=== PATIENT | male | born 1955 | race Caucasian/White ===

== ENCOUNTER 2021-02-12 14:38 | Inpatient (IN) | payer MEDICARE, OTHER ==
[~2021-02-12] VITALS: Ht 180.3 cm; Wt 62.5 kg
[2021-02-12 15:16] LABS: BASOPHILS % (AUTO) 1 % (0-1); EOSINOPHILS % (AUTO) 4 % (1-7); LYMPHOCYTES % (AUTO) 18 % (22-44); MEAN CORPUSCULAR HEMOGLOBIN 30.6 pg (27.5-34.5); MEAN CORPUSCULAR HGB CONC 33.4 g/dL (33.2-36.2); MEAN PLATELET VOLUME 7.4 fL (7.4-10.4); MONOCYTES % (AUTO) 7 % (2-9); NEUTROPHILS % (AUTO) 70 % (42-75); PLATELET COUNT 330 x10^3/uL (130-400); RED BLOOD COUNT 4.89 x10^6/uL (4.38-5.82); RED CELL DISTRIBUTION WIDTH 14.1 % (9.4-14.8)
[2021-02-12 15:27] LABS: ALANINE AMINOTRANSFERASE 34 U/L (12-78); ALBUMIN 3.4 g/dL (3.4-5.0); ANION GAP 7 mmol/L (5-15); CALCIUM 9.1 mg/dL (8.5-10.1); CHLORIDE 108 mmol/L (98-107); CREATININE 1.04 mg/dL (0.7-1.3)
[2021-02-12 15:31] LABS: ALKALINE PHOSPHATASE 154 U/L (45-117); BILIRUBIN,TOTAL 0.4 mg/dL (0.2-1.0); TOTAL PROTEIN 6.8 g/dL (6.4-8.2); TROPONIN I < 0.015 ng/mL (0.000-0.045)
--- NOTE | 2021-02-12 15:53 | NUR ---
pt presents to ED with c/o intermittent chest pain that's been "there for a while" but worse yesterday. notes this is sternal at 6/10, sharp in nature. pain does not radiate, no aggravating or allieviating factors. pt had an aortogram and angiogram yesterday by MD Elliott to assess pt's PAD, pt mentioned to MD Elliott his chest pain and she recommended he go to ED for workup. pt also notes that he has numbness/tingling to hands and feet bilaterally, this is chronic in nature but worse since yesterday after angiogram. pt a&o, resps even and unlabored, neuro intact. all monitors in place. sinus hayley rate 50s on threat monitoring analyst with no ectopy. all extremities warm and pink with equal strength. edmd plunkett at bedside.
[2021-02-12] MEDS ORDERED: VITAMIN E PO (16:49)
[2021-02-12] MEDS ORDERED: CLOP75TA52 PO (16:49)
[2021-02-12] MEDS ORDERED: GABA300C PO (16:49)
[2021-02-12] MEDS ORDERED: VITA1TAB19 PO (16:49)
[2021-02-12] MEDS ORDERED: CALCIUM PO (16:49)
[2021-02-12] MEDS ORDERED: ASPI-963 PO (16:49)
[2021-02-12] MEDS ORDERED: MULT-658 PO (16:49)
--- NOTE | 2021-02-12 16:50 | NUR ---
MD LANE AT BEDSIDE FOR ADMIT ASSESSMENT. PIV PLACED. ALL MONITORS IN PLACE. PT A&O, RESPS EVEN AND UNLABORED, NADN.
[2021-02-12] MEDS ORDERED: DIPHENHYDRAMINE 25 MG CAPSULE PO PRN (17:00)
[2021-02-12] MEDS ORDERED: ACETAMINOPHEN 325 MG TABLET PO PRN ×2 (17:00→17:30)
[2021-02-12] MEDS ORDERED: ONDANSETRON ODT 4 MG PO PRN ×2 (17:00→17:30)
[2021-02-12] MEDS ORDERED: ONDANSETRON 2MG/ML, 2ML IVPush PRN ×2 (17:00→17:30)
[2021-02-12] MEDS ORDERED: ENALAPRILAT 1.25 MG/ML, 2ML IVPush PRN ×2 (17:00→17:30)
[2021-02-12 17:10] LABS: TROPONIN I < 0.015 ng/mL (0.000-0.045)
[2021-02-12] MEDS ORDERED: hydrALAzine 20 MG/ML, 1ML IVPush PRN (17:30)
[2021-02-12] MEDS ORDERED: BISACODYL 10 MG SUPP PR PRN (17:30)
[2021-02-12] MEDS ORDERED: MELATONIN 5 MG TABLET PO PRN (17:30)
[2021-02-12] MEDS ORDERED: POLYETHYLENE GLYCOL 17 GM PACKET PO PRN (17:30)
[2021-02-12] MEDS ORDERED: HYDROcodone/APAP 5/325 TABLET PO PRN (17:30)
[2021-02-12] MEDS ORDERED: DOCUSATE 100 MG CAPSULE PO PRN (17:30)
--- NOTE | 2021-02-12 17:30 | NUR ---
shaneka parks at bedside for admit. pulses assessed by doppler by shaneka parks, shaneka not able to find left dorsalis pedis, right auscultated doppler monophasic. bilateral radial +1 bilaterally. shaneka states she will be consulting pts vascular surgeon to address.
--- NOTE | 2021-02-12 18:05 | NUR ---
report given to CHANCE Mayfield who is receiving, [facility]
[2021-02-12] MEDS ORDERED: GABAPENTIN 300 MG CAPSULE ONE (18:14)
[2021-02-12 18:23] VITALS: BP 124/68
[2021-02-12] MEDS: ENOXAPARIN 40 MG/0.4 ML SQ SCH (20:18)
[2021-02-12] MEDS: GABAPENTIN 300 MG CAPSULE PO SCH ×2 (20:18→21:00)
[2021-02-12 23:46] LABS: TROPONIN I < 0.015 ng/mL (0.000-0.045)
[2021-02-13 01:13] VITALS: BP 155/77
[2021-02-13 05:26] LABS: BASOPHILS % (AUTO) 1 % (0-1); EOSINOPHILS % (AUTO) 5 % (1-7); LYMPHOCYTES % (AUTO) 19 % (22-44); MEAN CORPUSCULAR HGB CONC 33.7 g/dL (33.2-36.2); MEAN PLATELET VOLUME 7.8 fL (7.4-10.4); MONOCYTES % (AUTO) 8 % (2-9); NEUTROPHILS % (AUTO) 67 % (42-75); PLATELET COUNT 297 x10^3/uL (130-400); RED BLOOD COUNT 4.78 x10^6/uL (4.38-5.82)
[2021-02-13 05:32] LABS: ANION GAP 5 mmol/L (5-15); CALCIUM 9.2 mg/dL (8.5-10.1); CHLORIDE 109 mmol/L (98-107)
[2021-02-13 05:37] LABS: CHOL/HDL RATIO 2.6; CHOLESTEROL, TOTAL 129 mg/dL (140-239); CREATININE 0.85 mg/dL (0.7-1.3); HDL CHOL % 38 % (26-37); HDL CHOLESTEROL (DIRECT) 49 mg/dL (40-60); LDL CHOLESTEROL,CALCULATED 62 mg/dL (54-169); LDL/HDL RATIO 1.3 (0.5-3.0); TRIGLYCERIDES 91 mg/dL (50-200); VLDL CHOLESTEROL 18 mg/dL (0-25)
[2021-02-13 07:50] VITALS: BP 133/75
[2021-02-13] MEDS ORDERED: REGADENOSON 0.4 MG/5 ML SYRINGE ONE (08:26)
[2021-02-13] MEDS: TAMSULOSIN 0.4 MG CAP.ER.24H PO SCH (09:33)
[2021-02-13] MEDS: ASPIRIN 81 MG TABLET EC PO SCH (09:33)
[2021-02-13] MEDS: MULTIVITS,STRESS FORMULA 1 TABLET PO SCH (09:33)
[2021-02-13] MEDS: MULTIVITAMIN 1 TABLET PO SCH (09:33)
[2021-02-13] MEDS: CLOPIDOGREL 75 MG TABLET PO SCH (09:33)
[2021-02-13] MEDS: GABAPENTIN 300 MG CAPSULE PO SCH ×3 (09:34→20:54)
[2021-02-13 12:54] VITALS: BP 144/78
[2021-02-13 13:13] LABS: INTERNATIONAL NORMALIZED RATIO 1.04 (0.93-1.1); PROTHROMBIN TIME 11.1 Seconds (9.6-11.5)
[2021-02-13] MEDS: ENOXAPARIN 40 MG/0.4 ML SQ SCH (18:02)
[2021-02-13 20:26] VITALS: BP 113/52
[2021-02-13] MEDS: ATORVASTATIN 80 MG TABLET PO SCH (20:54)
[2021-02-14 02:20] VITALS: BP 141/78
[2021-02-14 07:30] LABS: AMPHETAMINE SCREEN, URINE Positive (Negative); BARBITURATE SCREEN, URINE Negative (Negative); BENZODIAZEPINE SCREEN, URINE Negative (Negative); CANNABINOID SCREEN, URINE Positive (Negative); COCAINE SCREEN, URINE Negative (Negative); METHADONE SCREEN, URINE Negative (Negative); OPIATE SCREEN, URINE Negative (Negative)
[2021-02-14] MEDS ORDERED: FENTANYL PF 250 MCG/5ML ONE (07:33)
[2021-02-14] MEDS ORDERED: MIDAZOLAM 1 MG/ML, 2ML ONE ×2 (07:33→11:08)
[2021-02-14] MEDS ORDERED: THROMBIN 20,000 UNIT VIAL TP ONE (07:38)
[2021-02-14] MEDS ORDERED: PROTAMINE SULFATE 10 MG/ML, 25ML ONE (07:38)
[2021-02-14] MEDS ORDERED: HEPARIN 1,000 UNITS/ML, 10ML ONE (07:38)
[2021-02-14] MEDS ORDERED: HALOPERIDOL 5 MG/ML IV PRN (08:00)
[2021-02-14] MEDS ORDERED: hydrALAzine 20 MG/ML, 1ML IV PRN (08:00)
[2021-02-14] MEDS ORDERED: PROMETHAZINE 25 MG/ML, 1ML IVPush PRN (08:00)
[2021-02-14] MEDS ORDERED: DIPHENHYDRAMINE 50 MG/ML, 1ML IVPush PRN (08:00)
[2021-02-14] MEDS ORDERED: OXYcodone 5 MG/5 ML ORAL.SOL UDC PO PRN (08:00)
[2021-02-14] MEDS ORDERED: LABETALOL 5MG/ML, 20ML IV PRN (08:00)
[2021-02-14] MEDS ORDERED: HYDROmorphone 1 MG/ML, 1ML INJ IVPush PRN (08:00)
[2021-02-14] MEDS ORDERED: ACETAMINOPHEN 325 MG TABLET PO PRN (08:00)
[2021-02-14] MEDS ORDERED: MEPERIDINE/PF 25MG/0.5ML IVPush PRN (08:00)
[2021-02-14] MEDS ORDERED: CALCIUM CHLORIDE 10%, 10ML SYR ONE (11:15)
[2021-02-14] MEDS: GABAPENTIN 300 MG CAPSULE PO SCH ×3 (13:12→21:29)
[2021-02-14] MEDS ORDERED: CEFAZOLIN 1,000 MG ONE ×3 (13:29)
[2021-02-14] MEDS ORDERED: DEXAMETHASONE 4 MG/ML, 1ML ONE (13:29)
[2021-02-14] MEDS ORDERED: VASOPRESSIN 20 UNIT/ML, 1ML ONE (13:29)
[2021-02-14] MEDS ORDERED: SUCCINYLCHOLINE 20 MG/ML, 10ML ONE (13:29)
[2021-02-14] MEDS ORDERED: ONDANSETRON 2MG/ML, 2ML ONE (13:29)
[2021-02-14] MEDS ORDERED: EPINEPHRINE 1 MG/ML, 1ML ONE (13:29)
[2021-02-14] MEDS ORDERED: PROPOFOL 10 MG/ML, 20ML ONE (13:29)
[2021-02-14] MEDS ORDERED: ROCURONIUM 10MG/ML,5ML ONE (13:29)
[2021-02-14] MEDS ORDERED: GLYCOPYRROLATE 0.2MG/1ML, 5ML ONE (13:29)
[2021-02-14] MEDS ORDERED: PHENYLEPHRINE 10 MG/ML ONE (13:29)
[2021-02-14] MEDS ORDERED: NEOSTIGMINE 1 MG/ML, 10ML ONE (13:29)
[2021-02-14] MEDS ORDERED: FENTANYL PF 100 MCG/2ML ONE (13:43)
[2021-02-14] MEDS: FENTANYL PF 100 MCG/2ML IV PRN ×2 (13:50→14:00)
[2021-02-14] MEDS ORDERED: OXYcodone/APAP 7.5/325MG TABLET PO PRN (14:00)
[2021-02-14] MEDS ORDERED: OXYcodone 5 MG/5 ML ORAL.SOL UDC ONE (14:05)
[2021-02-14] MEDS ORDERED: HYDROmorphone 2 MG/ML, 1ML ONE (14:06)
[2021-02-14] MEDS: LACTATED RINGERS 1,000 ML IV SCH ×2 (15:24→21:48)
[2021-02-14 15:25] VITALS: BP 110/68
[2021-02-14] MEDS: CLOPIDOGREL 75 MG TABLET PO SCH (15:59)
[2021-02-14] MEDS: TAMSULOSIN 0.4 MG CAP.ER.24H PO SCH (15:59)
[2021-02-14] MEDS: MULTIVITAMIN 1 TABLET PO SCH (15:59)
[2021-02-14] MEDS: MULTIVITS,STRESS FORMULA 1 TABLET PO SCH (15:59)
[2021-02-14] MEDS: ASPIRIN 81 MG TABLET EC PO SCH (15:59)
[2021-02-14] MEDS: CEFAZOLIN PMX 1GM/50ML 50 ML IVPB SCH (16:37)
[2021-02-14 19:33] VITALS: BP 110/68
[2021-02-14] MEDS ORDERED: HEPARIN 5,000 UNITS/ML, 1ML IV ONE (20:00)
[2021-02-14] MEDS: ATORVASTATIN 80 MG TABLET PO SCH (21:29)
[2021-02-14] MEDS: HEPARIN 25,000 UNITS/250ML PMX 250 ML IV PRN (21:40)
[2021-02-15] MEDS: CEFAZOLIN PMX 1GM/50ML 50 ML IVPB SCH (00:32)
[2021-02-15 01:41] VITALS: BP 116/69
[2021-02-15 04:16] LABS: BASOPHILS % (AUTO) 0 % (0-1); EOSINOPHILS % (AUTO) 0 % (1-7); LYMPHOCYTES % (AUTO) 12 % (22-44); MEAN CORPUSCULAR HEMOGLOBIN 30.5 pg (27.5-34.5); MEAN CORPUSCULAR HGB CONC 33.7 g/dL (33.2-36.2); MEAN PLATELET VOLUME 7.5 fL (7.4-10.4); MONOCYTES % (AUTO) 8 % (2-9); NEUTROPHILS % (AUTO) 80 % (42-75); PLATELET COUNT 240 x10^3/uL (130-400); RED BLOOD COUNT 3.38 x10^6/uL (4.38-5.82); RED CELL DISTRIBUTION WIDTH 13.6 % (9.4-14.8)
[2021-02-15 04:24] LABS: ANION GAP 6 mmol/L (5-15); CALCIUM 8.4 mg/dL (8.5-10.1); CHLORIDE 107 mmol/L (98-107); CREATININE 0.97 mg/dL (0.7-1.3)
[2021-02-15 08:03] VITALS: BP 144/73
[2021-02-15] MEDS: TAMSULOSIN 0.4 MG CAP.ER.24H PO SCH (09:01)
[2021-02-15] MEDS: ASPIRIN 81 MG TABLET EC PO SCH (09:01)
[2021-02-15] MEDS: GABAPENTIN 300 MG CAPSULE PO SCH ×3 (09:01→21:47)
[2021-02-15] MEDS: MULTIVITAMIN 1 TABLET PO SCH (09:01)
[2021-02-15] MEDS: MULTIVITS,STRESS FORMULA 1 TABLET PO SCH (09:02)
[2021-02-15] MEDS: CLOPIDOGREL 75 MG TABLET PO SCH (09:02)
[2021-02-15] MEDS: HEPARIN 5,000 UNITS/ML, 1ML IV PRN (11:50)
[2021-02-15 13:26] VITALS: BP 132/63
[2021-02-15] MEDS: CARVEDILOL 6.25 MG TABLET PO SCH (17:39)
[2021-02-15 19:33] VITALS: BP 109/65
[2021-02-15] MEDS: ATORVASTATIN 40 MG TABLET PO SCH (21:46)
[2021-02-16 00:43] VITALS: BP 107/61
[2021-02-16] MEDS: HEPARIN 5,000 UNITS/ML, 1ML IV PRN ×2 (01:43→15:51)
[2021-02-16] MEDS: HEPARIN 25,000 UNITS/250ML PMX 250 ML IV PRN (01:49)
[2021-02-16 05:41] LABS: BASOPHILS % (AUTO) 1 % (0-1); EOSINOPHILS % (AUTO) 1 % (1-7); LYMPHOCYTES % (AUTO) 17 % (22-44); MEAN CORPUSCULAR HEMOGLOBIN 30.8 pg (27.5-34.5); MEAN PLATELET VOLUME 8.1 fL (7.4-10.4); MONOCYTES % (AUTO) 9 % (2-9); NEUTROPHILS % (AUTO) 73 % (42-75); PLATELET COUNT 217 x10^3/uL (130-400); RED BLOOD COUNT 3.13 x10^6/uL (4.38-5.82); RED CELL DISTRIBUTION WIDTH 13.7 % (9.4-14.8)
[2021-02-16] MEDS: CARVEDILOL 6.25 MG TABLET PO SCH (06:01)
[2021-02-16 08:54] VITALS: BP 142/65
[2021-02-16] MEDS: TAMSULOSIN 0.4 MG CAP.ER.24H PO SCH (09:14)
[2021-02-16] MEDS: GABAPENTIN 300 MG CAPSULE PO SCH ×4 (09:14→20:43)
[2021-02-16] MEDS: MULTIVITS,STRESS FORMULA 1 TABLET PO SCH (09:14)
[2021-02-16] MEDS: LISINOPRIL 10 MG TABLET PO SCH (09:14)
[2021-02-16] MEDS: CLOPIDOGREL 75 MG TABLET PO SCH (09:14)
[2021-02-16] MEDS: ASPIRIN 81 MG TABLET EC PO SCH (09:14)
[2021-02-16] MEDS: MULTIVITAMIN 1 TABLET PO SCH (09:14)
[2021-02-16] MEDS ORDERED: LACTATED RINGERS 1,000 ML IV ONE (13:30)
[2021-02-16 14:22] VITALS: BP 98/60
[2021-02-16] MEDS: CARVEDILOL 3.125 MG TABLET PO SCH (18:38)
[2021-02-16] MEDS: ATORVASTATIN 40 MG TABLET PO SCH (20:43)
[2021-02-16 20:50] VITALS: BP 88/47
[2021-02-17 01:16] VITALS: BP 119/69
[2021-02-17] MEDS: HEPARIN 25,000 UNITS/250ML PMX 250 ML IV PRN (02:57)
[2021-02-17 04:37] LABS: BASOPHILS % (AUTO) 0 % (0-1); EOSINOPHILS % (AUTO) 1 % (1-7); LYMPHOCYTES % (AUTO) 17 % (22-44); MEAN CORPUSCULAR HEMOGLOBIN 31.4 pg (27.5-34.5); MEAN CORPUSCULAR HGB CONC 34.5 g/dL (33.2-36.2); MEAN PLATELET VOLUME 8.2 fL (7.4-10.4); MONOCYTES % (AUTO) 8 % (2-9); NEUTROPHILS % (AUTO) 74 % (42-75); PLATELET COUNT 223 x10^3/uL (130-400); RED CELL DISTRIBUTION WIDTH 13.4 % (9.4-14.8)
[2021-02-17 04:49] LABS: ALBUMIN 2.5 g/dL (3.4-5.0); ANION GAP 6 mmol/L (5-15); CALCIUM 8.5 mg/dL (8.5-10.1); CHLORIDE 109 mmol/L (98-107)
[2021-02-17 04:50] LABS: CREATININE 0.69 mg/dL (0.7-1.3)
[2021-02-17] MEDS: HEPARIN 5,000 UNITS/ML, 1ML IV PRN ×2 (05:00→18:41)
[2021-02-17 07:14] VITALS: BP 135/63
[2021-02-17] MEDS: MULTIVITAMIN 1 TABLET PO SCH (08:24)
[2021-02-17] MEDS: LISINOPRIL 10 MG TABLET PO SCH (08:24)
[2021-02-17] MEDS: TAMSULOSIN 0.4 MG CAP.ER.24H PO SCH (08:24)
[2021-02-17] MEDS: CLOPIDOGREL 75 MG TABLET PO SCH (08:24)
[2021-02-17] MEDS: MULTIVITS,STRESS FORMULA 1 TABLET PO SCH ×2 (08:24→09:00)
[2021-02-17] MEDS: ASPIRIN 81 MG TABLET EC PO SCH (08:24)
[2021-02-17] MEDS: CARVEDILOL 3.125 MG TABLET PO SCH ×2 (08:25→18:02)
[2021-02-17] MEDS: GABAPENTIN 300 MG CAPSULE PO SCH ×2 (08:25→20:44)
[2021-02-17] MEDS ORDERED: CYANOCOBALAMIN 1,000 MCG/ML, 1ML IM ONE (09:00)
[2021-02-17] MEDS ORDERED: POTASSIUM PHOSPHATE 44 MEQ in SODIUM CHLORIDE 0.9% 500 ML IV ONE (09:00)
[2021-02-17] MEDS: CHOLECALCIFEROL 5,000u TAB PO SCH (10:12)
[2021-02-17] MEDS: ZINC SULFATE 220 MG CAPSULE PO SCH (10:12)
[2021-02-17] MEDS: LORazepam 0.5MG TABLET PO PRN ×2 (11:30→18:02)
[2021-02-17 14:11] VITALS: BP 122/68
[2021-02-17] MEDS: ASCORBIC ACID 500 MG TABLET PO SCH (18:02)
[2021-02-17 20:33] VITALS: BP 133/67
[2021-02-17] MEDS: ATORVASTATIN 40 MG TABLET PO SCH (20:43)
[2021-02-18 01:11] VITALS: BP 98/60
[2021-02-18] MEDS: HEPARIN 25,000 UNITS/250ML PMX 250 ML IV PRN (01:17)
[2021-02-18 06:11] VITALS: BP 150/64
[2021-02-18] MEDS: CARVEDILOL 3.125 MG TABLET PO SCH (06:12)
[2021-02-18] MEDS: ASCORBIC ACID 500 MG TABLET PO SCH (06:12)
[2021-02-18 07:00] VITALS: BP 145/75
[2021-02-18] MEDS: GABAPENTIN 300 MG CAPSULE PO SCH (07:56)
[2021-02-18] MEDS: CLOPIDOGREL 75 MG TABLET PO SCH (07:56)
[2021-02-18 07:57] LABS: BASOPHILS % (AUTO) 1 % (0-1); EOSINOPHILS % (AUTO) 2 % (1-7); LYMPHOCYTES % (AUTO) 16 % (22-44); MEAN CORPUSCULAR HEMOGLOBIN 31.4 pg (27.5-34.5); MEAN CORPUSCULAR HGB CONC 34.9 g/dL (33.2-36.2); MEAN PLATELET VOLUME 7.9 fL (7.4-10.4); MONOCYTES % (AUTO) 8 % (2-9); NEUTROPHILS % (AUTO) 74 % (42-75); PLATELET COUNT 244 x10^3/uL (130-400); RED BLOOD COUNT 2.62 x10^6/uL (4.38-5.82); RED CELL DISTRIBUTION WIDTH 13.4 % (9.4-14.8)
[2021-02-18] MEDS: MULTIVITS,STRESS FORMULA 1 TABLET PO SCH ×2 (07:57)
[2021-02-18] MEDS: ZINC SULFATE 220 MG CAPSULE PO SCH (07:57)
[2021-02-18] MEDS: ASPIRIN 81 MG TABLET EC PO SCH (07:57)
[2021-02-18] MEDS: LISINOPRIL 10 MG TABLET PO SCH (07:57)
[2021-02-18] MEDS: MULTIVITAMIN 1 TABLET PO SCH (07:57)
[2021-02-18] MEDS: CHOLECALCIFEROL 5,000u TAB PO SCH (07:57)
[2021-02-18] MEDS: TAMSULOSIN 0.4 MG CAP.ER.24H PO SCH (07:57)
[2021-02-18 12:26] VITALS: BP 116/62
== END 2021-02-18 14:06 | disposition left against medical advice (07) | DRG 253 ==
LOC: ED 16:18 → EDIP 16:31 → SUATTDRO 16:40 → 5SO 18:21
PROVIDERS: ADMIT Hospitalist; ATTEND Family Medicine
PROC: 041K09Q Bypass Right Femoral Artery to Lower Extremity Artery with Autologous Venous Tissue, Open Approach (ICD-10-PCS; principal; 2021-02-15)
PROC: 06BP0ZZ Excision of Right Saphenous Vein, Open Approach (ICD-10-PCS; 2021-02-15)
DX: T82.868A Thrombosis due to vascular prosthetic devices, implants and grafts, initial encounter (principal); I50.22 Chronic systolic (congestive) heart failure; D62 Acute posthemorrhagic anemia; I42.9 Cardiomyopathy, unspecified; E78.5 Hyperlipidemia, unspecified; I11.0 Hypertensive heart disease with heart failure; I70.223 Atherosclerosis of native arteries of extremities with rest pain, bilateral legs; F41.9 Anxiety disorder, unspecified; I25.10 Atherosclerotic heart disease of native coronary artery without angina pectoris; M48.00 Spinal stenosis, site unspecified; Y83.2 Surgical operation with anastomosis, bypass or graft as the cause of abnormal reaction of the patient, or of later complication, without mention of misadventure at the time of the procedure; Z20.822 Contact with and (suspected) exposure to COVID-19; F19.10 Other psychoactive substance abuse, uncomplicated; Z79.82 Long term (current) use of aspirin; I25.2 Old myocardial infarction; Z80.1 Family history of malignant neoplasm of trachea, bronchus and lung; Z88.5 Allergy status to narcotic agent; Z91.14 Patient's other noncompliance with medication regimen
CPT/HCPCS: 36415; 71045; 78452; 80048; 80053; 80061; 80069; 80307; 83735; 84484; 85025; 85520; 85610; 86803; 86850; 86900; 87340; 87635; 87806; 93005; 93017; 93306; 96360; 96361; 99285; G0378; J0171; J0690; J1100; J1170; J1644; J1650; J2250; J2405; J2704; J2710; J2720; J2785; J3010; A9502; G0475; J0330; J2370; J3420; J7040; Q0163